=== PATIENT | female | born 1985 | race Caucasian/White ===

== ENCOUNTER 2024-11-10 07:56 | Outpatient (AMB) | payer OTHER, SELFPAY ==
--- OUTSIDE RECORDS SUMMARY | 2024-11-10 07:59 | XMS_ITS | Clinical Summary ---
Author Organization [facility] Address [address] [place] [phone] Phone Care Team Providers Care Rn Immunology Name Role Phone Saba Anguiano MD Primary Care Provider Nina Gaxiola PA Unavailable Cuco Rodriguez MD, DDS Unavailable [phone] Allergies No known active allergies Medications meloxicam (MOBIC) 7.5 MG tablet Take 1 tablet (7.5 mg total) by mouth daily. 30 tablet 1 07/30/2021 Active cyclobenzaprine (FLEXERIL) 5 MG tablet Take 1 tablet (5 mg total) by mouth every evening. 30 tablet 1 07/30/2021 Active Social History Tobacco Use Types Packs/Day Years Used Date Smoking Tobacco: Never Smokeless Tobacco: Never Alcohol Use Standard Drinks/Week Comments Not Asked 0 (1 standard drink = 0.6 oz pur e alcohol) Socially Education Answer Date Recorded Are you interested in more education? Not on ricarda e 06/13/2022 Are you concerned about learning? Not on file 06/13/2022 No 06/13/2022 No 06/13/2022 Digital Access Answer Date Recorded No 07/12/2022 No 07/12/2022 No 07/12/2022 Reliable internet access at home? Not on file 07/12/2022 Device with a working camera? Not on file Comments Unknown Sex and Gender Information Value Date Recorded Sex Assigned at Female 07/18/2021 1:24 PM EDT Legal Sex Female 1:22 PM EDT Gender Identity Female 07/18/2021 1:24 PM EDT Sexual Orientation Straight 07/18/2021 1: 24 PM EDT Last Filed Vital Signs Vital Sign Reading Time Taken Comments Blood Pressure 101/65 07/30/2021 9:35 AM EDT Pulse 64 07/30/2021 9:35 AM EDT Temperature - - Respiratory Rate - - Oxygen Saturation 98% 07/30/2021 9:35 AM EDT Inhaled Oxygen Concentration - - Weight 70.3 kg (155 lb) 07/30/2021 9:35 AM EDT Height 165.1 cm (5' 5 ) 07/30/2021 9:35 AM EDT Body Mass Index 25.79 07/30/2021 9:35 AM EDT Plan of Treatment Health Maintenance Due Date Last Done Comments DEPRESSION SCREENING 1999 HEPATITIS C SCREENING 2005 HIV ONE-TIME SCREENING (18-6 5 YEARS) 2005 PAP SMEAR 01/09/2008 Adult Td,Tdap Booster 04/28/2022 04/28/2012 INFLUENZA VACCINE (#1) 2024 12/09/2015 COVID-19 VACCINE (2 6 season) 2024 05/26/2020, 05/06/2020 HEPATITIS A VACCINES Aged Out 12/09/2015 No long er eligible based on patient's age to complete this topic SMOKING STATUS SCREENING (On ce After 26 Yrs) Completed 07/30/2021 HIB VACCINES Aged Out No longer eligi ble based on patient's age to complete this topic MENINGOCOCCAL VACCINES (ACWY) Aged Out No longer eligible based on patient's age to complete this topic MENINGOCOCCAL VACCINES (B) Aged Out N o longer eligible based on patient's age to complete this topic PNEUMOCOCCAL VACCINES (0-49 years) Aged Out No longer eligible b ased on patient's age to complete this topic Medical Devices Not on file Insurance [facility] ALLANCE ACO [employer] [address] [place] [address] [facility] [facility] [employer] [facility] [employer] [place] [address] [place] [address] [employer] [facility] [employer] Care Teams Rn Immunology Relationship Specialty Start Date End Date [place] Saba Crane MD [address] [place] [phone] PCP - General Internal Medicine 07/18/21 Nina Gaxiola PA [address] [place] [phone] 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 It is not the complete legal health record.[facility]
--- OUTSIDE RECORDS SUMMARY | 2024-11-10 07:59 | XMS_ITS | Clinical Summary ---
Author Organization [facility] Address [address] [place] [address] Phone Care Team Providers Care Checker Bakery Products Name Role Phone Leigh Ann Segura MD Primary Care Provider [phone] Allergies No known active allergies Medications omeprazole OTC (PriLOSEC OTC) 20 mg EC tablet Take 1 tablet (20 mg total) by mouth 1 (one) time each day. Do not crush, chew, or split. 60 tablet 07/26/2024 Active Active Problems Problem Noted Date Diagnosed Date TMJ (temporomandibular joint disorder) 2 Lichen sclerosus 02/06/2021 Overview (07/26/2024): Last Assessment & Plan: Reviewed findings with patient. I reviewed the importance of regular maintenance topical steroid use to prevent symptoms, further scarring, and squamous cell cancer of the vulva. I also explained the importance of regular follow up to ensure she has no evidence of precancerous or cancerous changes and that she is not having side effects from her medication. I reviewed areas of application and amount of medication to use. She will restart mometasone, but switched to ointment. She will use MWF night. Depression 04/11/2019 Mesenteric adenitis 08/25/2018 Encounters Date Type Department Care Team Description 10/13/2024 12:15 PM EDT - 10/13/2024 11:59 PM EDT [facility] [address] [place], [place] [phone] Pain of right hand Discharge Disposition: Home or Self Care 10/13/2024 11:45 AM EDT [facility] [address] [facility] DARLYN MORGAN [phone] Rodolfo Moscoso NP Pain of right hand (Primary Dx) from Last 3 Months Immunizations Name Administration Dates Next Due Hepatitis A Pediatric (Havri x; Vaqta) 12mo to less than 19yo 12/09/2015 Hepatitis B (Jpjnity-C-Fvcvs , Recombivax HB-Adult) 19yo and older 09/05/2020,07/12/2012 Influenza Quadrivalent, 0.5m l, preservative free (Fluarix; FluLaval; Fluzone) ages 6mo and older (Afluria) 3yo and older 12/10/2022,12/31/2021,04/03/2021 Influenza trivalent, with pr eservative (Fluzone; Afluria) 6mo and older 12/09/2015 Measles 07/06/2012 Mumps 07/06/2012 Rubella 07/06/2012 Tdap Tetanus diptheria acell ular pertussis (Boostrix; Adacel) 7yo and older 04/28/2012 Typhoid VICPS (Typhim Vi) 2yo and older 12/09/19 16 Varicella live (Varivax) 12mo and older 07/07/19 13 Surgical History Surgery Date Site/Laterality Comments TONSILLECTOMY PROCEDURE: HISTORICAL TONSILLECTOMY; COMMENT: age 14 SECTION 2010 PROCEDURE: HISTORICAL Medical History Medical History Date Comments HELLP syndrome DX:HELLP syndrom e; COMMENT: premature delivery Screening for malignant neop lasm of the cervix DX:Screening for malignant n eoplasm of the cervix; COMMENT: 2008 pap neg, 2009 pap neg Mesenteric adenitis 08/25/2018 DX:Mesenteri c adenitis Depression 04/11/2019 DX:Depression Family History Medical History Relation Name Comments Other: healthy Brother 1 Asthma Daughter 1 X2 Other: MVA Father Other cancer Maternal Grandfather unsure what type Prostate cancer Maternal Grandfather grea t grandfather Ovarian cancer Maternal Grandmother great grandmother, also leukemia Asthma Mother Breast cancer Mother CHEK2 positive , 1/5 sisters positive Prostate cancer Paternal Grandfather Asthma Sister 1 X2 Other: healthy Sister 2 Prostate cancer Uncle great matern als Relation Name Status Comments Brother 1 Brother 2 Alive Daughter 1 Daughter 2 Alive X2 Father Maternal Grandfather Maternal Grandmother Mother Alive Paternal Grandfather Alive Paternal Grandmother Sister 1 Sister 2 Sister 3 Alive X5 Uncle Social History Tobacco Use Types Packs/Day Years Used Date Smoking Tobacco: Never Smokeless Tobacco: Never Tobacco Cessation:Counseling Given: Not Answered Alcohol Use Standard Drinks/Week Comments Yes 0 (1 standard drink = 0.6 oz pur e alcohol) Comments No Sex and Gender Information Value Date Recorded Sex Assigned at Not on file Legal Sex Female 3:59 AM EST Gender Identity Not on file Sexual Orientation Not on file Obstetrics History Last Filed Vital Signs Vital Sign Reading Time Taken Comments Blood Pressure 102/75 10/13/2024 11:48 AM EDT Pulse 72 10/13/2024 11:48 AM EDT Temperature 36.6 C (97.8 F) 07/07/2024 3:06 PM EDT Respiratory Rate 22 07/07/2024 5:10 PM EDT Oxygen Saturation 94% 07/07/2024 5:10 PM EDT Inhaled Oxygen Concentration - - Weight 85 kg (187 lb 6.4 oz) 10/13/2024 11:48 AM EDT Height 165.1 cm (5' 5 ) 10/13/2024 11:48 AM EDT Body Mass Index 31.18 10/13/2024 11:48 AM EDT Plan of Treatment Upcoming Encounters Date Type Department Care Team (Late st Contact Info) Description 01/10/2025 9:00 AM EST Office Visit [facility] [address] [place], [place] [phone] Leigh Ann Segura MD [address] [place], [place] 03/15/2025 9:00 AM EST Consult Bariatric Surgery - [place] [address] [place] [phone] Bhavik Mcgee MD [address] [place] [phone] Health Maintenance Due Date Last Done Comments Hepatitis B Vaccines (3 of 3 - 19+ 3-dose series) 10/31/2020 09/05/2020, 07/12/2012 HIV Screening 01/18/2022 Hepatitis C Screening 01/18/2022 Social Influencers of Health Screening 01/18/2022 DTaP,Tdap,and Td Vaccines (2 - Td or Tdap) 04/28/2022 04/28/2012 Cervical Cancer Screening: Pap Smear 07/23/2022 07/24/2019 Depression Screening 02/16/2024 COVID-19 Vaccine ( season) 2024 12/31/2021, 05/26/2020, 05/06/2020 Influenza Vaccine (#1) 2024 , 12/31/2021, 04/03/2021, Additional history exists Cholesterol Screening (Lipid Panel) 08/01/2026 08/01/2021 RSV Immunization Adult Patients (1 - 1-dose 75+ series) 2062 Varicella Vaccines Aged Out 07/06/2012 No longer eligible based on patient's age to complete this topic Hepatitis A Vaccines Aged Out 12/09/2015 No long er eligible based on patient's age to complete this topic HIB Vaccines Aged Out No longer eligi ble based on patient's age to complete this topic HPV Vaccines Aged Out No longer eligi ble based on patient's age to complete this topic IPV Vaccines Aged Out No longer eligi ble based on patient's age to complete this topic MMR Vaccines Aged Out No longer eligi ble based on patient's age to complete this topic Meningococcal ACWY Vaccine Aged Out N o longer eligible based on patient's age to complete this topic Meningococcal B Vaccine Aged Out No l onger eligible based on patient's age to complete this topic Pneumococcal Vaccine: Pediatrics (0 to 5 Years) and At-Risk Patients (6 to 49 Years) Aged Out No longer eligible based on patient's age to complete this topic RSV Immunization Patients Under 20 months Aged Out No longer eligible based on patient's age to complete this topic Procedures Procedure Name Priority Date/Time Associated Diagnosis Comments XR HAND 3+ VIEWS RIGHT Routine 10/13/2024 12:21 PM EDT Pain of right hand LIPID PANEL Routine 08/01/2021 PAP SMEAR Routine 07/24/2019 from Last 3 Months or Most Recently Relevant to Health Maintenance Results * XR Hand 3+ Views Right (10/13/2024 12:21 PM EDT) Anatomical Region Laterality Modality Upper Extremities, Hand Right [facility] 10/13/2024 11:2 9 PM EDT Narrative 10/13/2024 11:30 PM EDT Right hand, 3 views. History pain. There is no visible displaced fractures or dislocations. There are mild degenerative changes in the DIP joints of the second third fourth and fifth fingers. There is no abnormal soft tissue calcifications or bone erosions. CONCLUSIONS: Multisite degenerative changes as detailed. -------- FINAL REPORT -------- Dictated By: Chaya Nava Dictated Date: 10/13/2024 23:29 ET Assigned Physician: Chaya Nava Reviewed and Electronically Signed By: Chaya Nava Signed Date: 10/13/2024 23:30 ET Workstation ID: [id number] Transcribed By: Self Edit Transcribed Date: 10/13/2024 23:29 ET Procedure Note Cahya Nava MD - 10/13/2024 Right hand, 3 views. History pain. There is no visible displaced fractures or dislocations. There are milddegenerative changes in the DIP joints of the second third fourth andfifth fingers. There is no abnormal soft tissue calcifications or boneerosions. CONCLUSIONS: Multisite degenerative changes as detailed. -------- FINAL REPORT -------- Dictated By: Chaya Nava Dictated Date: 10/13/2024 23:29 ET Assigned Physician: Chaya Nava Reviewed and Electronically Signed By: Chaya Nava Signed Date: 10/13/2024 23:30 ET Workstation ID: [id number] Transcribed By: Self Edit Transcribed Date: 10/13/2024 23:29 ET Rodolfo Moscoso PRINCIPAL WEB DEVELOPER IMG XR PROCEDURES Final Result * Lipid panel (08/01/2021) LDL/HDL Ratio 4 Triglycerides 92 mg/dL Cholesterol 146 mg/dL HDL 38 mg/dL LDL Cholesterol 90 mg/dL Blood Venous blood specimen / Unknown us Historical Provider MD LAB BLOOD ORDERABLES Yolande l Result * Pap smear (07/24/2019) 07/24/2019 Narrative HISTORICAL TESTING LAB RESULTING AGENCY - 07/26/2019 3:26 PM EDT [id number] THINPREP PAP, IMAGED: NEGATIVE FOR SQUAMOUS INTRAEPITHELIAL LESION AND MALIGNANCY . CLUE CELLS ARE PRESENT. LEILANI CAREY(ASCP) (CASE ELECTRONICALLY SIGNED 07 26 2019) RESULT OF APTIMA HIGH RISK HPV ASSAY: HIGH RISK HPV: NEGATIVE (SEROTYPES 16,18,31,33,35,39,45,51,52,56,58,59,66,68) COMPLETED ON 2019-07-25 ADEQUACY: SATISFACTORY ENDOCERVICAL/TRANSFORMATION ZONE COMPONENT PRESENT. SOURCE: THINPREP PAP HPV ANY DX: REFLEX 16 AND 18, CERVICAL, IMAGED CLINICAL INFORMATION: HPV ANY DIAGNOSIS. PAP HX NEG, Z12.4 Rae Go CNM LAB CYTOLOGY ORDERABLES Fin al Result HISTORICAL TESTING LAB RESULTING AGENCY from Last 3 Months or Most Recently Relevant to Health Maintenance Insurance [place] [id number] Care Teams Checker Bakery Products Relationship Specialty Start Date End Date Leigh Ann Segura MD [address] [facility] [phone] PCP - General Internal Medicine 07/07/24
--- OUTSIDE RECORDS SUMMARY | 2024-11-10 07:59 | XMS_ITS ---
Author Name [facility] Organization Unknown Care Team Organization Name Specialty Phone Email Start Date End Da te [facility] Roxanne Lambert DO Primary Care 04/22/202209/15 [facility] Anna Marie Aponte MD Primary Care 12/23/2021 10/04/2023
--- NOTE | 2024-11-10 08:21 | MHC.OFFVISWM ---
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 32.0: Details: Start time: 8.15am, End time: 9am ?I spent 40 minutes speaking with the patient on the phone plus an additional 5 minutes reviewing and updating records for a total of 45 minutes HPI Comments Details: Previous weight loss efforts: keto diet, intermittent fasting Wakes up: Works overnight Sleeps: 8am to 1pm and 8pm-10pm Breakfast: skips Lunch: 1-2pm ([place]) Dinner: 7pm (chicken, vegetables, potatoes) Snacks: 3-4pm ( occ crackers), 6a-7am (toast or yogurt) Exercise: has home treadmill (does not incline but tracks calories) Beverages: Coffee: none, Tea: (3-4/wk black), Soda: rarely, Juice: orange/apple juice (1-2/wk), ETOH: 1/wk (Tequila: 1 glass) PFS Medical History (Updated 11/10/24 @ 09:51 by Rocco Sethi MD) BMI 32.0-32.9,adult Obesity Tonsil and adenoid disease, chronic Surgical History (Updated 08/16/24 @ 10:25 by Aysha Del Angel [facility]) Hx of adenoidectomy Hx of tonsillectomy H/O section Hx of wisdom tooth extraction Family History (Updated 08/15/24 @ 08:11 by BANDAR Ames) Paternal Grandmother Diabetes Mother Breast cancer Leukemia Social History (Updated 08/15/24 @ 08:21 by BANDAR Ames) Household Members: Significant Other and Children Alcohol intake: current Alcohol intake frequency: holidays/special occasions only Patient Tobacco Use Status: Never used Tobacco Physical Exam Vital Signs: BMI result Body Mass Index 31.9 Telehealth Telehealth Telehealth Platform: Telephone Location of provider rendering services: practice address Location of patient: address on file Patient Identification confirmed using: Name, : Yes Telehealth method: voice only Patient verbally consented to treatment: Yes Patient verbally consented to billing insurance company: Yes Patient informed of any privacy concerns related to visit: Yes Minutes spent on Phone/Video with Pt.: 45 Assessment & Plan Assessment & Plan (1) Obesity: Code(s): E66.9 - Obesity, unspecified Category: Medical Qualifiers: Obesity type: due to excess calories Obesity classification: adult class 1 (BMI 30 - 34.9) Serious obesity comorbidity presence: without serious comorbidity Body mass index: BMI 32.0-32.9 Qualified Code(s): E66.811 - Obesity, class 1; E66.09 - Other obesity due to excess calories; Z68.32 - Body mass index [BMI] 32.0-32.9, adult Plan: 1. As we discussed, based on your present BMI you are approximately 42lbs overweight. In my opinion, for any weight loss strategy to be successful should have a high probability to help you lose at least 30lbs out of 42lbs of the extra weight you carry. We discussed in detail the available therapeutic options: 1) our lifestyle intervention program that has an average weight loss of 10% in 3 months.?Some patients continue it for longer and have lost over 50lbs but this is not common. Our lifestyle program can be provided by me or by using our software emelina, the Jumptap emelina. I will provide you with a link to use the emelina if you choose to do so. We use protein shakes and protein bars to replace some of the meals of the day and cover your appetite better. We will decide together the exact combination. 2) Weight loss medications: these can be used in conjunction with our lifestyle program or you may choose to use them without following a lifestyle program from my program but your own. As we discussed, your insurances do not cover the injections, but I have prescribed it anyway to see if they do. The medication I use more often is called Zepbound and is one shot per week. My office will do the authorizations and we will train you how to use it properly. We also discussed that you can self pay for the first 3 months and the cost is $249 for the first month and $499 for any other month thereafter. These payments go to the drug company directly and not to us. 3. You will receive a link of our software emelina to generate an individualized nutritional and exercise plan specific for you. Please send me a screenshot of the plans you will generate Meal to include lean meat (beef, fish, pork, turkey, chicken), or equatorial guinean yogurt, or egg whites, or beans with a salad with olive oil and fruits (berries, pears, apples, kiwi). Avoid salt, breads, potatoes, rice, pasta, desserts. ?4. If you choose shakes, each shake would be drunk slowly, like coffee in a period of 2 hours. ?5. If you choose bars, cut each bar in 4 pieces and eat each piece in 30min ?to make each bar last 2 hours. ?6. I emphasized the importance of measuring accurately the food portion and measure it when serving the food in plate ?7. The meal portions include a specific number of forks of meat and salad. You always eat the meat portion but you can replace up to half of salad/vegetables portion with rice, potatoes or pasta, or a fruit ?if you like. The less you do it the better weight loss will be. ?8. One full-size fork is what it can be scooped on the fork without falling aside and not what can be bit with the fork. Use regular forks like those you find in a typical restaurant. ?9.? Please buy the body composition scale we discussed and send me weight measurements as soon as possible and then once a week. Always include your diet and exercise plan. 10. The best exercise choice would be to use your treadmill at home that can track calories. You can create and exercise plan with the RightBMI emelina. ?11.?It is important of avoiding and for at least 18 months postoperatively and has been discussed at the infosession. ?12. Goal is to lose at least 1.5-2lbs per week ?13. Goal to lose at least 10% of your weight, which is about 18lbs. Minimum weight goal: 168lbs 14. Please follow the diet plan exactly without any change. If you don't like something about the plan or you feel hungry you need to communicate with me so I can help you revise the plan. You should not change the plan yourself. Medications: New tirzepatide (weight loss) (Zepbound) for 4 weeks 2.5 mg (0.5 mL) subcut QWEEK 2 mL 0RF E66.9 - Obesity, unspecified, Z68.32 - Body mass index [BMI] 32.0-32.9, adult
[2024-11-10 08:29] VITALS: BMI 31.9
== END 2024-11-10 09:59 | disposition home or self-care (01) ==
LOC: HO.HBS 07:56
PROVIDERS: Visit Provider Surgery
DX: E66.811 Obesity, class 1 (principal); E66.09 Other obesity due to excess calories; Z68.32 Body mass index [BMI] 32.0-32.9, adult
CPT/HCPCS: 99204